=== PATIENT | female | born 1990 | race Caucasian/White ===

== ENCOUNTER 2019-07-29 09:54 | Day surgery (SDC) | payer OTHER | END 2019-07-29 21:45 | disposition home or self-care (01) | LOC: CIR.AMB 09:54 → ADM 10:45 → CIR.AMB 11:45 | DX: T19.3XXA Foreign body in uterus, initial encounter (principal) ==

== ENCOUNTER 2020-09-28 14:30 | Inpatient (IN) | payer OTHER ==
[~2020-09-28] VITALS: Ht 152.4 cm; Wt 71.7 kg
[2020-10-06] MEDS ORDERED: PRENATAL TABLE1 EAC1 PO (21:28)
[2020-10-06] MEDS ORDERED: TUMS200 MG PO (21:28)
== END 2020-10-09 10:21 | disposition home or self-care (01) | DRG 807 ==
LOC: LDR 10-06 20:49 → OB/GYN 10-07 16:30
PROVIDERS: ADMIT Specialist; ATTEND Specialist
PROC: 4A1HXFZ Monitoring of Products of Conception, Cardiac Rhythm, External Approach (ICD-10-PCS; 2020-10-06)
PROC: 10E0XZZ Delivery of Products of Conception, External Approach (ICD-10-PCS; principal; 2020-10-07)
PROC: 0HQ9XZZ Repair Perineum Skin, External Approach (ICD-10-PCS; 2020-10-07)
DX: O70.0 First degree perineal laceration during delivery (principal); Z37.0 Single live birth; O99.824 Streptococcus B carrier state complicating childbirth; Z3A.39 39 weeks gestation of pregnancy; Z20.822 Contact with and (suspected) exposure to COVID-19